=== PATIENT | male | born 1990 | race Caucasian/White ===

== ENCOUNTER 2016-10-05 15:04 | Emergency (ER) | payer OTHER ==
[~2016-10-05] VITALS: Ht 190.5 cm; Wt 115.7 kg
[2016-10-05] MEDS ORDERED: NORCO 5-325 TA1 EACH PO (17:11)
[2016-10-05] MEDS ORDERED: ONDANSETRON HCL4 M2 PO (19:25)
[2016-10-05 20:00] VITALS: BP 116/67
== END 2016-10-05 20:14 | disposition home or self-care (01) ==
LOC: ER 15:04
DX: S53.105A Unspecified dislocation of left ulnohumeral joint, initial encounter (principal); W18.30XA Fall on same level, unspecified, initial encounter; Y93.66 Activity, soccer; Y92.89 Other specified places as the place of occurrence of the external cause; Y99.8 Other external cause status